=== PATIENT | female | born 1995 | race Caucasian/White ===

== ENCOUNTER 2018-12-21 06:19 | Day surgery (SDC) | payer BC ==
[2018-12-21] MEDS ORDERED: Lidocaine 2% 5 ML SDV ONE (07:00)
[2018-12-21] MEDS ORDERED: fentaNYL 100 MCG/2 ML SDV ONE ×2 (07:01→07:58)
[2018-12-21] MEDS ORDERED: Propofol 200 MG/20 ML SDV ONE ×2 (07:01)
[2018-12-21] MEDS ORDERED: Midazolam 1 MG/ML 2 ML SDV ONE (07:01)
[2018-12-21] MEDS ORDERED: Lidocaine 1% with EPINEPHrine 1:100,000 20 ML MDV ONE (07:32)
--- NOTE | 2018-12-21 07:53 | PCM.PREANE ---
Preanesthetic Assessment - Anesthesia/Transfusion/Family Hx Anesthesia History: Prior Anesthesia Without Reaction Other Type of Anesthesia Reaction Comment: "twin sister woke up during her tonsillectomy" Family History of Anesthesia Reaction: No Transfusion History: No Prior Transfusion(s) - Review of Systems General: No Symptoms Pulmonary: No Symptoms Cardiovascular: No Symptoms Gastrointestinal: No Symptoms Neurological: No Symptoms Other: Reports: None - Physical Assessment NPO Status Date: 12/20/18 O2 Sat by Pulse Oximetry: 98 Respiratory Rate: 14 Vital Signs: Last Vital Signs Temp 97.9 F 12/21/18 07:12 Pulse 99 12/21/18 07:12 Resp 14 12/21/18 07:12 BP 142/74 H 12/21/18 07:12 Pulse Ox 98 12/21/18 07:12 Height: 5 ft 3.5 in Weight: 62.596 kg ASA Class: 5E Emergency Airway Class: Mallampati = 2 Dentition: Reports: Normal Dentition ROM/Head Extension: Full Lungs: Clear to Auscultation, Normal Respiratory Effort Cardiovascular: Regular Rate, Regular Rhythm - Lab Values: Laboratory Last Values WBC 14.05 K/uL (4.0-11.0) H 12/21/18 07:15 RBC 4.37 M/uL (4.30-5.90) 12/21/18 07:15 Hgb 13.1 g/dL (12.0-16.0) 12/21/18 07:15 Hct 39.3 % (36.0-46.0) 12/21/18 07:15 MCV 89.9 fL (80.0-98.0) 12/21/18 07:15 MCH 30.0 pg (27.0-32.0) 12/21/18 07:15 MCHC 33.3 g/dL (31.0-37.0) 12/21/18 07:15 RDW Std Deviation 43.1 fl (28.0-62.0) 12/21/18 07:15 RDW Coeff of Shane 13 % (11.0-15.0) 12/21/18 07:15 Plt Count 349 K/uL (150-400) 12/21/18 07:15 MPV 9.30 fL (7.40-12.00) 12/21/18 07:15 Neut % (Auto) 80.2 % (48.0-80.0) H 12/21/18 07:15 Lymph % (Auto) 12.8 % (16.0-40.0) L 12/21/18 07:15 [place] % (Auto) 6.4 % (0.0-15.0) 12/21/18 07:15 Eos % (Auto) 0.5 % (0.0-7.0) 12/21/18 07:15 Baso % (Auto) 0.1 % (0.0-1.5) 12/21/18 07:15 Neut # (Auto) 11.3 K/uL (1.4-5.7) H 12/21/18 07:15 Lymph # (Auto) 1.8 K/uL (0.6-2.4) 12/21/18 07:15 [place] # (Auto) 0.9 K/uL (0.0-0.8) H 12/21/18 07:15 Eos # (Auto) 0.1 K/uL (0.0-0.7) 12/21/18 07:15 Baso # (Auto) 0.0 K/uL (0.0-0.1) 12/21/18 07:15 Nucleated RBC % 0.0 /100WBC 12/21/18 07:15 Nucleated RBCs # 0 K/uL 12/21/18 07:15 HCG, Qual NEGATIVE (NEG) 12/21/18 07:15 - Allergies Allergies/Adverse Reactions: Allergies Allergy/AdvReac Type Severity Reaction Status Date / Time No Known Allergies Allergy Verified 12/15/18 07:30 - Blood Blood Available: No - Anesthesia Plan Pre-Op Medication Ordered: None - Acknowledgements Anesthesia Type Planned: General Anesthesia Pt an Appropriate Candidate for the Planned Anesthesia: Yes Alternatives and Risks of Anesthesia Discussed w Pt/Guardian: Yes Pt/Guardian Understands and Agrees with Anesthesia Plan: Yes Additional Comments: anes prob list: chr pain from intersticial cyctitis, rxed with amitryptaline PLAN: ga/lma PreAnesthesia Questionnaire HEENT History: Reports: None Cardiovascular History: Reports: None Respiratory History: Reports: None Gastrointestinal History: Reports: None Genitourinary History: Reports: None 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: Musculoskeletal History: Reports: Fracture Other Musculoskeletal History: hx fx arm and collarbone Neurological History: Reports: None Psychiatric History: Reports: None Endocrine/Metabolic History: Reports: None Hematologic History: Reports: None Immunologic History: Reports: None Oncologic (Cancer) History: Reports: None Dermatologic History: Reports: Eczema - Past Surgical History Head Surgeries/Procedures: Reports: None HEENT Surgical History: Reports: Tonsillectomy Cardiovascular Surgical History: Reports: None Respiratory Surgical History: Reports: None GI Surgical History: Reports: None Female Surgical History: Reports: None Endocrine Surgical History: Reports: None Neurological Surgical History: Reports: None Musculoskeletal Surgical History: Reports: None Oncologic Surgical History: Reports: None Dermatological Surgical History: Reports: None - SUBSTANCE USE Smoking Status *Q: Current Every Day Smoker Tobacco Use Within Last Twelve Months: Cigarettes Recreational Drug Use History: No - HOME MEDS Home Medications: Home Meds Amitriptyline [Elavil] 10 mg PO BEDTIME 12/15/18 [History] Norgestimate-Ethinyl Estradiol [Sprintec 28 Day Tablet] 1 tab PO ASDIRECTED 05/25 [History] - CURRENT (IN HOUSE) MEDS Current Meds: Current Medications Discontinued Medications Fentanyl (Sublimaze) Confirm Administered Dose 100 mcg .ROUTE .STK-MED ONE Stop: 12/21/18 07:02 Lidocaine (Xylocaine-Mpf 2%) Confirm Administered Dose 5 ml .ROUTE .STK-MED ONE Stop: 12/21/18 07:01 Lidocaine/Epinephrine (Xylocaine 1% With Epinephrine 1:100,000) Confirm Administered Dose 20 ml .ROUTE .STK-MED ONE Stop: 12/21/18 07:33 Midazolam HCl (Versed 1 Mg/Ml) Confirm Administered Dose 2 mg .ROUTE .STK-MED ONE Stop: 12/21/18 07:02 Propofol (Diprivan 20 Ml) Confirm Administered Dose 400 mg .ROUTE .STK-MED ONE Stop: 12/21/18 07:02 Propofol (Diprivan 20 Ml) Confirm Administered Dose 200 mg .ROUTE .STK-MED ONE Stop: 12/21/18 07:02
[2018-12-21] MEDS ORDERED: fentaNYL 100 MCG/2 ML SDV IVPUSH PRN (08:08)
[2018-12-21] MEDS ORDERED: Naloxone 0.4 MG/ML Syringe IVPUSH PRN (08:08)
[2018-12-21] MEDS ORDERED: EPINEPHrine 1:10,000 1 MG/10 ML Syringe IVPUSH PRN (08:08)
[2018-12-21] MEDS ORDERED: Albuterol 0.083% 2.5 MG/3 ML Neb Soln NEB PRN (08:08)
[2018-12-21] MEDS ORDERED: Atropine 0.1 MG/ML 10 ML Syringe IVPUSH PRN ×2 (08:08)
[2018-12-21] MEDS ORDERED: 50% Dextrose in Water 50 ML Syringe IVPUSH PRN (08:08)
[2018-12-21] MEDS ORDERED: Acetaminophen/HYDROcodone 325-5 MG Tab PO PRN (08:37)
--- NOTE | 2018-12-21 08:41 | PCM.OPNOTE ---
- General Post-Op/Procedure Note Date of Surgery/Procedure: 12/21/18 Operative Procedure(s): LEEP Findings: EUA showed normal sized uterus Acetowhite epithelium noted on cervix around the 12 oclock and 6 oclock Pre Op Diagnosis: CIN2 Post-Op Diagnosis: CIN2 Anesthesia Technique: MAC Primary Surgeon: Elina Sanchez Anesthesia Provider: Agustin Feng Pathology: Cervical Leep specimen Fluid Replacement, Intraop: 700 EBL in mLs: 5 Complications: None Condition: Good
--- NOTE | 2018-12-21 08:46 | PCM.POSTAN ---
POST ANESTHESIA ASSESSMENT - MENTAL STATUS Mental Status: Alert - RESPIRATORY Respiratory Status: Respiratory Rate WNL, Airway Patent, O2 Saturation Stable - CARDIOVASCULAR CV Status: Pulse Rate WNL, Blood Pressure Stable - GASTROINTESTINAL GI Status: No Symptoms - POST OP HYDRATION Hydration Status: Adequate & Stable
--- NOTE | 2018-12-21 09:24 | PCM48HPAN ---
Post Anesthesia Note - EVALUATION WITHIN 48HRS OF ANESTHETIC Vital Signs in Normal Range: Yes Patient Participated in Evaluation: Yes Respiratory Function Stable: Yes Airway Patent: Yes Cardiovascular Function Stable: Yes Hydration Status Stable: Yes Pain Control Satisfactory: Yes Nausea and Vomiting Control Satisfactory: Yes Resp Rate: 14
--- NOTE | 2018-12-21 13:48 | OR ---
SURGEON: CLAUDY SANCHEZ DATE OF PROCEDURE: 12/21/2018 PREOPERATIVE DIAGNOSIS: Cervical intraepithelial neoplasia 2 by colposcopy. POSTOPERATIVE DIAGNOSIS: Cervical intraepithelial neoplasia 2 by colposcopy. PROCEDURE: Endocervical curettage and LEEP cone biopsy. ANESTHESIA: MAC. PRIMARY SURGEON: Claudy Sanchez MD. FINDINGS: normal uterus while exposure of the cervix showed slight acetowhite noted at the 12 and 6 o'clock position. ESTIMATED BLOOD LOSS: Minimal. DESCRIPTION OF PROCEDURE: The patient was taken to the operating room. She was placed on the operating table in the dorsal lithotomy position. The vagina and perineum were draped in the usual fashion. Using the bivalve insulated speculum, the cervix was visualized and painted with acetic acid. Using lidocaine with epinephrine and spinal needle, the cervix was injected at 3, 6, 9, and 12 o'clock positions. Using a 20 x 15 mm loop, a flat cone biopsy was removed from the ectocervix surrounding the os and the ECC was then done. After the LEEP procedure with Kevorkian curette, the endocervix was scraped. The scraping was sent to pathology separately. Hemostasis was noted after the procedure. The base of the cone was ablated. After ablation, Monsel was applied to the base of the cone. The patient was taken to the recovery room in stable condition. All instrument and pad count were correct x2. DESMOND / COURTNEY /[id number]
== END 2018-12-21 09:35 | disposition home or self-care (01) ==
LOC: MW.SDS 06:19
PROVIDERS: ATTEND Obstetrics & Gynecology
DX: N87.0 Mild cervical dysplasia (principal); F17.210 Nicotine dependence, cigarettes, uncomplicated; Z79.3 Long term (current) use of hormonal contraceptives; Z79.899 Other long term (current) drug therapy; Z98.890 Other specified postprocedural states
CPT/HCPCS: 36415; 57461; 84703; 85025; J2001; J2250; J2704; J3010; 00940; 88305; 88307

== ENCOUNTER 2020-10-06 12:03 | Emergency (ER) | payer BC ==
[2020-10-06] MEDS ORDERED: Aspirin 81 MG Tab.Chew PO ONE (12:04)
[2020-10-06] MEDS ORDERED: Sodium Chloride 0.9% 10 ML Syringe FLUSH PRN (12:04)
[2020-10-06] MEDS ORDERED: Sodium Chloride 0.9% 2.5 ML Syringe FLUSH PRN (12:04)
--- NOTE | 2020-10-06 12:10 | EDM.PDOC ---
ED HPI GENERAL MEDICAL PROBLEM - General Chief Complaint: Chest Pain Stated Complaint: CHEST PAIN Time Seen by Provider: 10/06/20 12:04 - History of Present Illness INITIAL COMMENTS - FREE TEXT/NARRATIVE: History of present illness: [] This patient who is is saying she developed chest pain that started last night. It was intermittent. It is worse when she belches or swallowing. But there is a pressure in the center of her chest associated with mild diaphoresis and some nausea. There is no shortness of breath. In the last few hours its become constant and severe pressure in the center of her chest. The patient is a smoker but not diabetic and there is no family history of heart disease or stroke. She has not been recently immobilized but is and third trimester. She also has it if history of thromboembolic disease and the negative family history of thromboembolic disease. Review of systems: As per history of present illness and below otherwise all systems reviewed and negative. Past medical history: As per history of present illness and as reviewed below otherwise noncontributory. Surgical history: As per history of present illness and as reviewed below otherwise noncontributory. Social history: No reported history of drug or alcohol abuse. Family history: As per history of present illness and as reviewed below otherwise noncontributory. Physical exam: Constitutional - well developed, well-nourished and in no acute distress HEENT - normocephalic, no evidence of trauma - external nose and mouth normal - no mass in neck and no JVD - mucosae moist EYES - full EOM, PERRL, no icterus - no evidence of inflammation, injection, or drainage Respiratory - no respiratory distress, equal bilateral expansion, lungs clear to auscultation and no abnormal lung sounds Cardiovascular - Regular Rhythm with S1 and S2 appreciated and no murmur, gallop or rub. GI -there is a near-term fundus in her abdomen. Abdomen soft without organomegaly - normal bowel sounds - no guard or rebound Musculoskeletal no gross deformity of long bones or joints - no tenderness, swelling or edema Neurologic - Alert and oriented times four - CN II-XII grossly intact - motor sensory and coordination symmetrically normal Psychiatric - appropriate mood and affect with normal thought content Hematologic - No petechiae or purpura - mucosa appropriate color and sclera not pale - normal nail bed color and refill Integument - no rash or evidence of trauma - normal turgor Diagnostics: [] Therapeutics: [] Impression: [] Plan: [] Definitive disposition and diagnosis as appropriate pending reevaluation and review of above. Chest Pain Score (Numeric/FACES): 5 - Related Data Allergies Allergy/AdvReac Type Severity Reaction Status Date / Time amoxicillin Allergy Rash Verified 10/06/20 12:05 Home Meds: Home Meds Omeprazole Magnesium [Prilosec Otc] 20 mg PO DAILY #30 tablet. 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: Musculoskeletal History: Reports: Fracture Other Musculoskeletal History: hx fx arm and collarbone Neurological History: Reports: None Psychiatric History: Reports: None Endocrine/Metabolic History: Reports: None Hematologic History: Reports: None Immunologic History: Reports: None Oncologic (Cancer) History: Reports: None Dermatologic History: Reports: Eczema - Past Surgical History Head Surgeries/Procedures: Reports: None HEENT Surgical History: Reports: Tonsillectomy Cardiovascular Surgical History: Reports: None Respiratory Surgical History: Reports: None GI Surgical History: Reports: None Female Surgical History: Reports: None Endocrine Surgical History: Reports: None Neurological Surgical History: Reports: None Musculoskeletal Surgical History: Reports: None Oncologic Surgical History: Reports: None Dermatological Surgical History: Reports: None ED ROS GENERAL - Review of Systems Review Of Systems: Comprehensive ROS is negative, except as noted in HPI. ED EXAM, GENERAL - Physical Exam Exam: See Below Free Text/Narrative:: Physical exam see in the HPI #1 Interpretation EKG Interpretation Comments: EKG done at 12 PM sinus tachycardia heart rate 121 MD interval [address] depression in the lateral leads. No prior for comparison. Impression no obvious acute injury. Course - Vital Signs Text/Narrative:: [address] Joyce and she wanted the patient taken over for an NST at the OB service. Last Recorded V/S: Last Vital Signs Temp 37.2 C 10/06/20 12:05 Pulse 120 H 10/06/20 12:05 Resp 18 10/06/20 12:05 BP 141/81 H 10/06/20 12:05 Pulse Ox 99 10/06/20 12:05 - Orders/Labs/Meds Orders: Active Orders 24 hr Category Date Time Status EKG Documentation Completion [RC] AM Care 10/06/20 12:04 Active Heart Tones [RC] ASDIRECTED Care 10/06/20 12:08 Active Sodium Chloride 0.9% [Saline Flush] Med 10/06/20 12:04 Active 10 ml FLUSH ASDIRECTED PRN Sodium Chloride 0.9% [Saline Flush] Med 10/06/20 12:04 Active 2.5 ml FLUSH ASDIRECTED PRN Saline Lock Insert [OM.PC] Stat Oth 10/06/20 12:04 Ordered Medication Orders Sodium Chloride (Sodium Chloride 0.9% 10 Ml Syringe) 10 ml FLUSH ASDIRECTED PRN PRN Reason: Keep Vein Open Last Admin: 10/06/20 12:20 Dose: 10 ml Documented by: SAEID Sodium Chloride (Sodium Chloride 0.9% 2.5 Ml Syringe) 2.5 ml FLUSH ASDIRECTED PRN PRN Reason: Keep Vein Open Last Admin: 10/06/20 12:20 Dose: 2.5 ml Documented by: SAEID Labs: Laboratory Tests 10/06/20 10/06/20 10/06/20 Range/Units 12:25 12:25 13:56 WBC 12.87 H (4.0-11.0) K/uL RBC 3.61 L (4.30-5.90) M/uL Hgb 11.6 L (12.0-16.0) g/dL Hct 34.0 L (36.0-46.0) % MCV 94.2 (80.0-98.0) fL MCH 32.1 H (27.0-32.0) pg MCHC 34.1 (31.0-37.0) g/dL RDW Std Deviation 47.5 (28.0-62.0) fl RDW Coeff of Shane 14 (11.0-15.0) % Plt Count 248 (150-400) K/uL MPV 9.60 (7.40-12.00) fL Neut % (Auto) 82.7 H (48.0-80.0) % Lymph % (Auto) 11.5 L (16.0-40.0) % [place] % (Auto) 5.1 (0.0-15.0) % Eos % (Auto) 0.6 (0.0-7.0) % Baso % (Auto) 0.1 (0.0-1.5) % Neut # (Auto) 10.7 H (1.4-5.7) K/uL Lymph # (Auto) 1.5 (0.6-2.4) K/uL [place] # (Auto) 0.7 (0.0-0.8) K/uL Eos # (Auto) 0.1 (0.0-0.7) K/uL Baso # (Auto) 0.0 (0.0-0.1) K/uL Nucleated RBC % 0.0 /100WBC Nucleated RBCs # 0 K/uL Sodium 138 (136-145) mmol/L Potassium 3.5 (3.5-5.1) mmol/L Chloride 104 (98-107) mmol/L Carbon Dioxide 20.6 L (21.0-32.0) mmol/L BUN 6 L (7.0-18.0) mg/dL Creatinine 0.6 (0.6-1.0) mg/dL Est Cr Clr Drug Dosing 113.36 mL/min Estimated GFR (MDRD) > 60.0 ml/min Glucose 97 (74-106) mg/dL Calcium 9.4 (8.5-10.1) mg/dL Magnesium 1.4 L (1.8-2.4) mg/dL Total Bilirubin 0.3 (0.2-1.0) mg/dL AST 12 L (15-37) IU/L ALT 20 (14-63) IU/L Alkaline Phosphatase 111 (46-116) U/L Troponin I < 0.050 (0.000-0.056) ng/mL Total Protein 6.8 (6.4-8.2) g/dL Albumin 2.9 L (3.4-5.0) g/dL Globulin 3.9 (2.6-4.0) g/dL Albumin/Globulin Ratio 0.7 L (0.9-1.6) Lipase 81 (73-393) U/L Urine Color YELLOW Urine Appearance CLEAR Urine pH 6.5 (5.0-8.0) Ur Specific [place] <= 1.005 (1.001-1.035) Urine Protein NEGATIVE (NEGATIVE) mg/dL Urine Glucose (UA) NEGATIVE (NEGATIVE) mg/dL Urine Ketones TRACE H (NEGATIVE) mg/dL Urine Occult Blood NEGATIVE (NEGATIVE) Urine Nitrite NEGATIVE (NEGATIVE) Urine Bilirubin NEGATIVE (NEGATIVE) Urine Urobilinogen 0.2 (<2.0) EU/dL Ur Leukocyte Esterase NEGATIVE (NEGATIVE) 10/06/20 Range/Units 14:58 WBC (4.0-11.0) K/uL RBC (4.30-5.90) M/uL Hgb (12.0-16.0) g/dL Hct (36.0-46.0) % MCV (80.0-98.0) fL MCH (27.0-32.0) pg MCHC (31.0-37.0) g/dL RDW Std Deviation (28.0-62.0) fl RDW Coeff of Shane (11.0-15.0) % Plt Count (150-400) K/uL MPV (7.40-12.00) fL Neut % (Auto) (48.0-80.0) % Lymph % (Auto) (16.0-40.0) % [place] % (Auto) (0.0-15.0) % Eos % (Auto) (0.0-7.0) % Baso % (Auto) (0.0-1.5) % Neut # (Auto) (1.4-5.7) K/uL Lymph # (Auto) (0.6-2.4) K/uL [place] # (Auto) (0.0-0.8) K/uL Eos # (Auto) (0.0-0.7) K/uL Baso # (Auto) (0.0-0.1) K/uL Nucleated RBC % /100WBC Nucleated RBCs # K/uL Sodium (136-145) mmol/L Potassium (3.5-5.1) mmol/L Chloride (98-107) mmol/L Carbon Dioxide (21.0-32.0) mmol/L BUN (7.0-18.0) mg/dL Creatinine (0.6-1.0) mg/dL Est Cr Clr Drug Dosing mL/min Estimated GFR (MDRD) ml/min Glucose (74-106) mg/dL Calcium (8.5-10.1) mg/dL Magnesium (1.8-2.4) mg/dL Total Bilirubin (0.2-1.0) mg/dL AST (15-37) IU/L ALT (14-63) IU/L Alkaline Phosphatase (46-116) U/L Troponin I < 0.050 (0.000-0.056) ng/mL Total Protein (6.4-8.2) g/dL Albumin (3.4-5.0) g/dL Globulin (2.6-4.0) g/dL Albumin/Globulin Ratio (0.9-1.6) Lipase (73-393) U/L Urine Color Urine Appearance Urine pH (5.0-8.0) Ur Specific [place] (1.001-1.035) Urine Protein (NEGATIVE) mg/dL Urine Glucose (UA) (NEGATIVE) mg/dL Urine Ketones (NEGATIVE) mg/dL Urine Occult Blood (NEGATIVE) Urine Nitrite (NEGATIVE) Urine Bilirubin (NEGATIVE) Urine Urobilinogen (<2.0) EU/dL Ur Leukocyte Esterase (NEGATIVE) Meds: Medications Generic Name Dose Route Start Last Admin Trade Name Freq PRN Reason Stop Dose Admin Sodium Chloride 10 ml 10/06/20 12:04 10/06/20 12:20 Sodium Chloride 0.9% 10 Ml Syringe FLUSH 10 ml ASDIRECTED PRN Administration Keep Vein Open Sodium Chloride 2.5 ml 10/06/20 12:04 10/06/20 12:20 Sodium Chloride 0.9% 2.5 Ml Syringe FLUSH 2.5 ml ASDIRECTED PRN Administration Keep Vein Open Discontinued Medications Generic Name Dose Route Start Last Admin Trade Name Freq PRN Reason Stop Dose Admin Al Hydroxide/Mg Hydroxide 30 ml 10/06/20 12:36 10/06/20 13:06 Aluminum Hydroxide/Magnesium Hydroxide/Simethicone Susp 30 Ml Cup PO 10/06/20 12:37 30 ml ONETIME ONE Administration Aspirin 324 mg 10/06/20 12:04 10/06/20 12:19 Aspirin 81 Mg Tab.Chew PO 10/06/20 12:05 324 mg ONETIME ONE Administration Pantoprazole Sodium 40 mg/ 10 mls @ 300 mls/hr 10/06/20 12:39 10/06/20 13:07 Sodium Chloride IV 10/06/20 12:40 300 mls/hr NOW ONE Administration Departure - Departure Time of Disposition: 16:43 Disposition: Home, Self-Care 01 Condition: Good Clinical Impression: GERD (gastroesophageal reflux disease) - Discharge Information Prescriptions: Omeprazole Magnesium [Prilosec Otc] 20 mg PO DAILY #30 tablet. Instructions: Gastroesophageal Reflux Disease, Adult, [id number] Forms: ED Department Discharge Additional Instructions: Lower asked to take you by wheelchair to the labor and delivery department where they will evaluate the baby. [facility] [address] [place] [id number] [facility] [address] [place] [id number] The following information is given to patients seen in the emergency department who are being discharged to home. This information is to outline your options for follow-up care. We provide all patients seen in our emergency department with a follow-up referral. The need for follow-up, as well as the timing and circumstances, are variable depending upon the specifics of your emergency department visit. If you don't have a primary care physician on staff, we will provide you with a referral. We always advise you to contact your personal physician following an emergency department visit to inform them of the circumstance of the visit and for follow-up with them and/or the need for any referrals to a consulting specialist. The emergency department will also refer you to a specialist when appropriate. This referral assures that you have the opportunity for follow-up care with a specialist. All of these measure are taken in an effort to provide you with optimal care, which includes your follow-up. Under all circumstances we always encourage you to contact your private physician who remains a resource for coordinating your care. When calling for follow-up care, please make the office aware that this follow-up is from your recent emergency room visit. If for any reason you are refused follow-up, please contact the [facility] Emergency Department at and asked to speak to the emergency department charge nurse. Sepsis Event Note (ED) - Focused Exam Vital Signs: Vital Signs Temp Pulse Resp BP Pulse Ox 10/06/20 12:05 37.2 C 120 H 18 141/81 H 99 - My Orders Last 24 Hours: My Active Orders 10/06/20 12:04 EKG Documentation Completion [RC] AM Sodium Chloride 0.9% [Saline Flush] 10 ml FLUSH ASDIRECTED PRN Sodium Chloride 0.9% [Saline Flush] 2.5 ml FLUSH ASDIRECTED PRN Saline Lock Insert [OM.PC] Stat 10/06/20 12:08 Heart Tones [RC] ASDIRECTED - Assessment/Plan Last 24 Hours: My Active Orders 10/06/20 12:04 EKG Documentation Completion [RC] AM Sodium Chloride 0.9% [Saline Flush] 10 ml FLUSH ASDIRECTED PRN Sodium Chloride 0.9% [Saline Flush] 2.5 ml FLUSH ASDIRECTED PRN Saline Lock Insert [OM.PC] Stat 10/06/20 12:08 Heart Tones [RC] ASDIRECTED
[2020-10-06] MEDS ORDERED: Aluminum Hydroxide/Magnesium Hydroxide/Simethicone Susp 30 ML Cup PO ONE (12:36)
[2020-10-06] MEDS ORDERED: Pantoprazole 40 MG in Sodium Chloride 0.9% 10 ML IV ONE (12:39)
[2020-10-06 13:14] LABS: BLOOD UREA NITROGEN,BUN 6 mg/dL (7.0-18.0); CARBON DIOXIDE,CO2 20.6 mmol/L (21.0-32.0); CHLORIDE,CL 104 mmol/L (98-107); GLUCOSE RANDOM 97 mg/dL (74-106); LIPASE 81 U/L (73-393); POTASSIUM,K 3.5 mmol/L (3.5-5.1); SODIUM,NA 138 mmol/L (136-145)
--- NOTE | 2020-10-06 13:26 | CR ---
INDICATION: Thirty-one weeks with chest and epigastric pain. TECHNIQUE: Chest 1 view COMPARISON: None FINDINGS: Cardiovascular and mediastinum: Heart size and vasculature are normal in caliber and appearance. Lungs and pleural spaces: Lungs are clear. No sign of infiltrate or mass. No sign of pleural effusion. No pneumothorax. Bones and soft tissues: No significant findings. IMPRESSION: No acute or significant findings. Dictated by Иван Núñez MD @ Oct 06 2020 1:21PM Signed by Dr. Иван Núñez @ Oct 06 2020 1:25PM
== END 2020-10-06 16:50 | disposition home or self-care (01) ==
LOC: MW.ED 12:03
DX: O99.611 Diseases of the digestive system complicating pregnancy, first trimester (principal); K21.9 Gastro-esophageal reflux disease without esophagitis; Z88.0 Allergy status to penicillin
CPT/HCPCS: 36415; 71045; 80053; 81003; 83690; 83735; 84484; 85025; 93005; 96374; 99285; A9270; C9113; 93010; 99284

== ENCOUNTER 2020-11-17 05:22 | Inpatient (IN) | payer BC ==
[2020-11-17] MEDS ORDERED: Sodium Chloride 0.9% 10 ML Syringe FLUSH PRN (05:39)
[2020-11-17] MEDS ORDERED: Sodium Chloride 0.9% 2.5 ML Syringe FLUSH PRN (05:39)
[2020-11-17] MEDS ORDERED: Clindamycin Phosphate in D5W 600 MG in Premix Bag 50 BAG IV ONE ×2 (05:39)
[2020-11-17] MEDS ORDERED: Citric Acid/Sodium Citrate Solution 30 ML Cup PO ONE (05:39)
[2020-11-17] MEDS ORDERED: Sodium Chloride 0.9% 10 ML SDV IV PRN (05:39)
[2020-11-17] MEDS ORDERED: Lactated Ringers 1,000 ML IV SCH ×2 (05:45→10:00)
[2020-11-17] MEDS ORDERED: Oxytocin/0.9 % Sodium Chloride 30 UNIT/500 ML BAG IV SCH (05:45)
[2020-11-17] MEDS ORDERED: Ondansetron 4 MG/2 ML SDV ONE (06:51)
[2020-11-17] MEDS ORDERED: Ketorolac 30 MG/ML SDV ONE (06:51)
[2020-11-17] MEDS ORDERED: Oxytocin 10 Units/1 ML SDV ONE ×2 (06:51→09:06)
[2020-11-17] MEDS ORDERED: Morphine PF 10 MG/10 ML SDV ONE (06:55)
--- NOTE | 2020-11-17 08:39 | PCM.PREANE ---
Preanesthetic Assessment - Anesthesia/Transfusion/Family Hx Anesthesia History: Prior Anesthesia Without Reaction Other Type of Anesthesia Reaction Comment: "sister woke up during her tonsillectomy" Family History of Anesthesia Reaction: No Transfusion History: Unknown Intubation History: Unknown - Review of Systems General: No Symptoms Pulmonary: No Symptoms Cardiovascular: No Symptoms Gastrointestinal: No Symptoms Neurological: No Symptoms - Physical Assessment NPO Status Date: 11/16/20 NPO Status Time: 22:00 Height: 1.57 m Weight: 88.904 kg ASA Class: 2 Mental Status: Alert & Oriented x3 Airway Class: Mallampati = 2 Dentition: Reports: Normal Dentition Thyro-Mental Finger Breadths: 3 Mouth Opening Finger Breadths: 2 ROM/Head Extension: Full - Lab Values: Laboratory Last Values WBC 10.24 K/uL (4.0-11.0) 11/16/20 09:54 RBC 3.93 M/uL (4.30-5.90) L 11/16/20 09:54 Hgb 12.9 g/dL (12.0-16.0) 11/16/20 09:54 Hct 37.1 % (36.0-46.0) 11/16/20 09:54 MCV 94.4 fL (80.0-98.0) 11/16/20 09:54 MCH 32.8 pg (27.0-32.0) H 11/16/20 09:54 MCHC 34.8 g/dL (31.0-37.0) 11/16/20 09:54 RDW Std Deviation 48.8 fl (28.0-62.0) 11/16/20 09:54 RDW Coeff of Shane 14 % (11.0-15.0) 11/16/20 09:54 Plt Count 224 K/uL (150-400) 11/16/20 09:54 MPV 10.30 fL (7.40-12.00) 11/16/20 09:54 Nucleated RBC % 0.0 /100WBC 11/16/20 09:54 Nucleated RBCs # 0 K/uL 11/16/20 09:54 Blood Type A POSITIVE 11/16/20 09:57 Antibody Screen NEGATIVE 11/16/20 09:57 - Allergies Allergies/Adverse Reactions: Allergies Allergy/AdvReac Type Severity Reaction Status Date / Time amoxicillin Allergy Rash Verified 11/15/20 08:08 - Acknowledgements Anesthesia Type Planned: Spinal Pt an Appropriate Candidate for the Planned Anesthesia: Yes Alternatives and Risks of Anesthesia Discussed w Pt/Guardian: Yes Pt/Guardian Understands and Agrees with Anesthesia Plan: Yes PreAnesthesia Questionnaire - Past Health History Medical/Surgical History: Denies Medical/Surgical History HEENT History: Reports: None Cardiovascular History: Reports: None Respiratory History: Reports: None Gastrointestinal History: Reports: GERD Genitourinary History: Reports: None 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: Musculoskeletal History: Reports: Fracture Other Musculoskeletal History: hx fx arm and collarbone Neurological History: Reports: None Psychiatric History: Reports: Anxiety Endocrine/Metabolic History: Reports: Obesity/BMI 30+ Hematologic History: Reports: None Immunologic History: Reports: None Oncologic (Cancer) History: Reports: None Dermatologic History: Reports: Eczema - Infectious Disease History Infectious Disease History: Reports: None - Past Surgical History Head Surgeries/Procedures: Reports: None HEENT Surgical History: Reports: Tonsillectomy Cardiovascular Surgical History: Reports: None Respiratory Surgical History: Reports: None GI Surgical History: Reports: None Female Surgical History: Reports: LEEP Endocrine Surgical History: Reports: None Neurological Surgical History: Reports: None Musculoskeletal Surgical History: Reports: None Oncologic Surgical History: Reports: None Dermatological Surgical History: Reports: None - SUBSTANCE USE Tobacco Use Status *Q: Light Tobacco User Tobacco Use Within Last Twelve Months: Cigarettes - HOME MEDS Home Medications: Home Meds #103/Iron Fumarate/Fa [ ] 1 dose PO BEDTIME 10/06/20 [History] Aspirin [Rivka Chewable Aspirin] 1 tab CHEW BEDTIME 11/07/20 [History] Ferrous Sulfate 1 tab PO BEDTIME 11/07/20 [History] Omeprazole Magnesium [Prilosec Otc] 20 mg PO DAILY 11/15/20 [History]
[2020-11-17] MEDS ORDERED: Dexamethasone 4 MG/ML 5 ML MDV ONE (09:08)
[2020-11-17] MEDS ORDERED: Metoclopramide 10 MG/2 ML SDV ONE (09:08)
--- NOTE | 2020-11-17 09:51 | PCM.OPNOTE ---
- General Post-Op/Procedure Note Date of Surgery/Procedure: 11/17/20 Operative Procedure(s): Primary lower segment section Findings: Live female delivered at 841am , pending , weight 2390g Live female delivered at 842am , pending , weight 2340g Pre Op Diagnosis: 24yo @ 37w1d. Twin Gestation ( Breech/Oblique). Gestational Hypertension Post-Op Diagnosis: same Anesthesia Technique: Epidural Primary Surgeon: Elina Sanchez Anesthesia Provider: Edward Crandall Fluid Replacement, Intraop: 1,400 Output, Urine Amount: 225 EBL in mLs: 700 Complications: None Condition: Good Free Text/Narrative:: Intake & Output 11/16/20 11/17/20 11/17/20 22:59 06:59 14:59 Intake Total 2150 Balance 2150
[2020-11-17] MEDS ORDERED: diphenhydrAMINE 50 MG/ML SDV IVPUSH PRN (09:58)
[2020-11-17] MEDS ORDERED: Ibuprofen 800 MG Tab PO PRN (09:58)
[2020-11-17] MEDS ORDERED: Tranexamic Acid 1,000 MG in Sodium Chloride 0.9% 100 ML IV PRN (09:58)
[2020-11-17] MEDS ORDERED: Ondansetron 4 MG/2 ML SDV IVPUSH PRN (09:58)
[2020-11-17] MEDS ORDERED: Bisacodyl 10 MG Supp RECTAL PRN (09:58)
[2020-11-17] MEDS ORDERED: Methylergonovine 0.2 MG/1 ML Amp IM PRN (09:58)
[2020-11-17] MEDS ORDERED: Lanolin 100% Cream 7 GM Tube TOP PRN (09:58)
[2020-11-17] MEDS ORDERED: Oxytocin 10 Units/1 ML SDV IM PRN (09:58)
[2020-11-17] MEDS ORDERED: Acetaminophen/oxyCODONE 325-5 MG Tab PO PRN ×3 (09:58→17:30)
[2020-11-17] MEDS ORDERED: Misoprostol 200 MCG Tab RECTAL PRN (09:58)
[2020-11-17] MEDS ORDERED: Oxytocin/Lactated Ringers 30 UNIT/500 ML BAG IV SCH (10:00)
--- NOTE | 2020-11-17 12:16 | PCM.POSTAN ---
POST ANESTHESIA ASSESSMENT - MENTAL STATUS Mental Status: Alert - RESPIRATORY Respiratory Status: Respiratory Rate WNL - CARDIOVASCULAR CV Status: Pulse Rate WNL - GASTROINTESTINAL GI Status: No Symptoms - POST OP HYDRATION Hydration Status: Adequate & Stable
[2020-11-17] MEDS ORDERED: Acetaminophen/oxyCODONE 325-5 MG Tab PO ONE (13:21)
[2020-11-17] MEDS ORDERED: Enoxaparin 40 MG/0.4 ML Syringe SUBCUT ONE (14:30)
[2020-11-17] MEDS: Ketorolac 30 MG/ML SDV IVPUSH SCH ×2 (15:25→21:03)
[2020-11-17] MEDS: Docusate Sodium 100 MG Cap PO SCH (21:07)
[2020-11-18] MEDS: Ketorolac 30 MG/ML SDV IVPUSH SCH ×3 (03:14→11:24)
--- NOTE | 2020-11-18 06:56 | PCM48HPAN ---
Post Anesthesia Note - EVALUATION WITHIN 48HRS OF ANESTHETIC Vital Signs in Normal Range: Yes Patient Participated in Evaluation: Yes Respiratory Function Stable: Yes Airway Patent: Yes Cardiovascular Function Stable: Yes Hydration Status Stable: Yes Pain Control Satisfactory: Yes Nausea and Vomiting Control Satisfactory: Yes Mental Status Recovered: Yes Vital Signs: Last Vital Signs Temp 35.9 C L 11/18/20 04:00 Pulse 96 11/18/20 04:00 Resp 20 11/18/20 04:00 BP 116/59 L 11/18/20 04:00 Pulse Ox 96 11/18/20 04:00
--- NOTE | 2020-11-18 08:43 | PCM.PNPP ---
- General Info Date of Service: 11/18/20 Subjective Update: Ambulating about room during rounds without difficulty. Pain well controlled with PO medications. Tolerating regular diet. Voiding without difficulty. Lochia decreasing. Breast pumping for babies in NICU in [place], [place]. Patient strongly desires discharge today due to both infants transferred to [place], [place]. - General Info Date of Service: 11/18/20 - Patient Data Vital Signs - Most Recent: Last Vital Signs Temp 96.7 F L 11/18/20 04:00 Pulse 96 11/18/20 04:00 Resp 16 11/18/20 06:00 BP 116/59 L 11/18/20 04:00 Pulse Ox 95 11/18/20 06:00 Weight - Most Recent: 196 lb I&O - Last 24 Hours: Intake & Output 11/17/20 11/18/20 11/18/20 22:59 06:59 14:59 Output Total 140 115 Balance -140 -115 Lab Results - Last 24 Hours: Laboratory Results - last 24 hr 11/18/20 Range/Units 06:10 Hgb 10.8 L (12.0-16.0) g/dL Hct 31.7 L (36.0-46.0) % Med Orders - Current: Current Medications Bisacodyl (Bisacodyl 10 Mg Supp) 10 mg RECTAL ONETIME PRN PRN Reason: Constipation Diphenhydramine HCl (Diphenhydramine 50 Mg/Ml Sdv) 25 mg IVPUSH Q6H PRN PRN Reason: Itching or Nausea Docusate Sodium (Docusate Sodium 100 Mg Cap) 100 mg PO BID [facility] Last Admin: 11/17/20 21:07 Dose: 100 mg Documented by: Emollient Ointment (Lanolin 100% Cream 7 Gm Tube) 0 gm TOP ASDIRECTED PRN PRN Reason: Sore Nipples Oxytocin/Sodium Chloride (Oxytocin 30 Unit/500 Ml-Ns) 30 unit in 500 mls @ 250 mls/hr IV TITRATE [facility] Lactated Ringer's (Ringers, Lactated) 1,000 mls @ 500 mls/hr IV BOLUS [facility] Last Infusion: 11/17/20 06:46 Dose: 999 mls/hr Documented by: Lactated Ringer's (Ringers, Lactated) 1,000 mls @ 125 mls/hr IV ASDIRECTED [facility] Last Admin: 11/17/20 13:40 Dose: 125 mls/hr Documented by: Oxytocin/Lactated Ringer's (Pitocin In Lr 30 Units/500 Ml) 30 unit in 500 mls @ 2 mls/hr IV TITRATE AMISHA; Protocol Tranexamic Acid 1,000 mg/ (Sodium Chloride) 110 mls @ 660 mls/hr IV ONETIME PRN PRN Reason: Bleeding Ibuprofen (Ibuprofen 800 Mg Tab) 800 mg PO Q8H PRN PRN Reason: mild pain or fever Ketorolac Tromethamine (Ketorolac 30 Mg/Ml Sdv) 30 mg IVPUSH Q6H [facility] Stop: 11/18/20 10:01 Last Admin: 11/18/20 03:14 Dose: 30 mg Documented by: Methylergonovine Maleate (Methylergonovine 0.2 Mg/1 Ml Amp) 0.2 mg IM ONETIME PRN PRN Reason: Excessive Vaginal Bleeding Misoprostol (Misoprostol 200 Mcg Tab) 1,000 mcg RECTAL ONETIME PRN PRN Reason: excessive bleeding Ondansetron HCl (Ondansetron 4 Mg/2 Ml Sdv) 4 mg IVPUSH Q4H PRN PRN Reason: Nausea/Vomiting Oxycodone/Acetaminophen (Acetaminophen/Oxycodone 325-5 Mg Tab) 2 tab PO Q4H PRN PRN Reason: Pain (moderate 4-6) Oxycodone/Acetaminophen (Acetaminophen/Oxycodone 325-5 Mg Tab) 1 tab PO Q4H PRN PRN Reason: Pain (moderate 4-6) Oxytocin (Oxytocin 10 Units/1 Ml Sdv) 10 unit IM ASDIRECTED PRN PRN Reason: Excessive Vaginal Bleeding Sodium Chloride (Sodium Chloride 0.9% 10 Ml Syringe) 10 ml FLUSH ASDIRECTED PRN PRN Reason: Keep Vein Open Sodium Chloride (Sodium Chloride 0.9% 2.5 Ml Syringe) 2.5 ml FLUSH ASDIRECTED PRN PRN Reason: Keep Vein Open Sodium Chloride (Sodium Chloride 0.9% 10 Ml Sdv) 10 ml IV ASDIRECTED PRN PRN Reason: IV Use Discontinued Medications Citric Acid/Sodium Citrate (Citric Acid/Sodium Citrate Solution 30 Ml Cup) 30 ml PO ONETIME ONE Stop: 11/17/20 05:40 Dexamethasone (Dexamethasone 4 Mg/Ml 5 Ml Mdv) Confirm Administered Dose 20 mg .ROUTE .STK-MED ONE Stop: 11/17/20 09:09 Enoxaparin Sodium (Enoxaparin 40 Mg/0.4 Ml Syringe) 40 mg SUBCUT ONETIME ONE Stop: 11/18/20 12:01 Enoxaparin Sodium (Enoxaparin 40 Mg/0.4 Ml Syringe) 40 mg SUBCUT ONETIME ONE Stop: 11/17/20 14:31 Last Admin: 11/17/20 14:35 Dose: 40 mg Documented by: Clindamycin Phosphate 600 mg/ (Premix) 50 mls @ 100 mls/hr IV ASDIRECTED ONE Stop: 11/17/20 06:08 Gentamicin Sulfate 100 mg/ (Sodium Chloride) 52.5 mls @ 100 mls/hr IV ONETIME ONE Stop: 11/17/20 06:14 Gentamicin Sulfate 100 mg/ (Sodium Chloride) 102.5 mls @ 195.238 mls/hr IV ONETIME ONE Stop: 11/17/20 08:16 Ketorolac Tromethamine (Ketorolac 30 Mg/Ml Sdv) Confirm Administered Dose 30 mg .ROUTE .STK-MED ONE Stop: 11/17/20 06:52 Metoclopramide HCl (Metoclopramide 10 Mg/2 Ml Sdv) Confirm Administered Dose 10 mg .ROUTE .STK-MED ONE Stop: 11/17/20 09:09 Morphine Sulfate (Morphine Pf 10 Mg/10 Ml Sdv) Confirm Administered Dose 10 mg .ROUTE .STK-MED ONE Stop: 11/17/20 06:56 Ondansetron HCl (Ondansetron 4 Mg/2 Ml Sdv) Confirm Administered Dose 4 mg .ROUTE .STK-MED ONE Stop: 11/17/20 06:52 Oxycodone/Acetaminophen (Acetaminophen/Oxycodone 325-5 Mg Tab) 1 tab PO ONETIME ONE Stop: 11/17/20 13:22 Last Admin: 11/17/20 13:37 Dose: 1 tab Documented by: Oxytocin (Oxytocin 10 Units/1 Ml Sdv) Confirm Administered Dose 20 unit .ROUTE .STK-MED ONE Stop: 11/17/20 06:52 Oxytocin (Oxytocin 10 Units/1 Ml Sdv) Confirm Administered Dose 10 unit .ROUTE .STK-MED ONE Stop: 11/17/20 09:07 - Infant Interaction Disposition, : Not Applicable (Infants transferred to NICU in [place], [place]) Feeding: Other (see below) (Breastpumping) Support Person: - Recovery Exam Fundal Tone: Firm Fundal Level: At Umbilicus Fundal Placement: Midline Lochia Amount: Small Lochia Color: Rubra/Red Perineum Description: Intact, Minimal Bruising/Swelling Episiotomy/Laceration: None Bladder Status: Voiding Urinary Elimination: Voided - Exam General: Alert Lungs: Normal Respiratory Effort Cardiovascular: Regular Rate GI/Abdominal Exam: Soft, Tender (mild, appropriate) Extremities: Normal Inspection, Normal Range of Motion, Non-Tender, No Pedal Edema Skin: Warm, Dry, Intact Wound/Incisions: Dressing Dry and Intact Neurological: No New Focal Deficit Psy/Mental Status: Normal Mood - Problem List Review Problem List Initiated/Reviewed/Updated: Yes - Assessment Assessment:: 24 year old POD1 s/p PLTCS for twin gestation and malpresentation - Plan Plan:: Routine cares * PO pain medications PRN * Regular diet as tolerated * Encourage ambulation and fluid intake * Breastpumping Dispo: stable. Patient meeting postoperative milestones and strongly desires discharge today to travel to [place], [place], where both of her infants were transferred for higher level of care. Strict precautions reviewed including fever/chills, shortness of air, chest pain, intractable nausea/vomiting, abdominal pain not controlled by PO medications and heavy vaginal bleeding. Patient instructed to get out and walk every 30-60 minutes while travelling to [place], [place]. She is to notify on [employer] or present to the ED in [place], [place], if she has any concerning symptoms.
[2020-11-18] MEDS: Docusate Sodium 100 MG Cap PO SCH (09:04)
[2020-11-18] MEDS ORDERED: Enoxaparin 40 MG/0.4 ML Syringe SUBCUT ONE (12:00)
--- NOTE | 2020-11-20 10:21 | OR ---
SURGEON: CLAUDY CONTI DATE OF PROCEDURE: 11/17/2020 PREOPERATIVE DIAGNOSIS: 24-year-old G3, P2-0-0-2 at 37 weeks and 1 day, for primary section secondary to: 1. Twin gestation, breech malpresentation, breech and oblique. 2. Gestational hypertension. POSTOPERATIVE DIAGNOSIS: 24-year-old G3, P2-0-0-2 at 37 weeks and 1 day, for primary section secondary to: 1. Twin gestation, breech malpresentation, breech and oblique. 2. Gestational hypertension. PROCEDURE: Primary lower segment section. ESTIMATED BLOOD LOSS: 700. IV FLUIDS: 1400. URINE OUTPUT: 225. ANESTHESIA: Spinal. NOTES AND FINDINGS: A live male and female . Twin A was a female delivered at 8:41. score pending. Weight is 2390 g. Twin B delivered at 8:42. score is pending. Weight is 2340 g. BRIEF HISTORY ABOUT THE PATIENT: She is a 24-year-old, G3, P2-0-0-2 at 37 weeks and 1 day who was being managed for di-di twin . She developed gestational hypertension about two weeks ago. She was being monitored weekly and biweekly with blood pressure checks and BPP, NSTs, and also PIH labs. Labs were normal. Blood pressures were stable around 130s to 140s over 80s to 90s. As a result of this, she was counseled for delivery at 37 weeks which she agreed to. Mode of delivery was going to be because of malpresentation of twin which were breech and cephalic. The patient was explained the risks, benefits, and alternatives and she decided to proceed with the . DESCRIPTION OF PROCEDURE: The patient was taken to the operating room where spinal anesthesia was performed without difficulty. She was prepared and draped in the dorsal supine position with a leftward tilt. A Pfannenstiel skin incision was made with a scalpel and carried down to the fascia with the Bovie. The fascia was incised and extended upwards and laterally. There was an abdominal diastasis noted. The abdomen was entered in with blunt and sharp entry. The entry of the peritoneum revealed the bladder. A bladder flap was created and a lower uterine incision was made with a scalpel and extended manually superiorly and inferiorly. The twin A was noted to be in a breech position and was delivered via breech delivery with the buttocks brought to the level of the incision. With pressure, the body was delivered and the anterior and posterior shoulder were delivered, and the head was delivered without any difficulty. Then, the position of the second twin was noted to be oblique. He was brought to cephalic position. The membrane was ruptured and with fundal pressure, the head was delivered, body was also delivered. Delayed cord clamping was observed for both twins. The twins were bulb-suctioned and cleaned and handed over to the awaiting nursery team. The placenta was then delivered by manual massage of the uterine fundus after cord blood gases were obtained. Because of the bleeding due to overdistention, Hemabate was also given. The uterine cavity was cleaned with a moist laparotomy sponge and all membranes were removed. The incision was closed in two layers, first layer was closed with a 0 Vicryl and second layer was closed with a 2-0 Monocryl. The incision was inspected and noted to be hemostatic. The Casa retractor was removed and the incision was then reinspected and noted to be hemostatic. The peritoneum was closed with 2-0 Vicryl in a continuous fashion. The skin was apposed in the midline with also 2- 0 Vicryl. The fascia was closed with 0 Vicryl in a continuous fashion. The skin was closed with a 4-0 Monocryl on a Jaswinder needle. All instrument and pad counts were correct x2. The patient tolerated the procedure well and will recover in the Labor and Delivery room. DESMOND VALDEZ /[id number] LARRY
== END 2020-11-18 11:59 | disposition home or self-care (01) | DRG 540 ==
LOC: MW.OBCHECK 05:22 → MW.OB 05:24 → MW.OBCHECK 05:38 → MW.OB 05:39
PROVIDERS: ADMIT Obstetrics & Gynecology; ATTEND Obstetrics & Gynecology
PROC: 10D00Z1 Extraction of Products of Conception, Low, Open Approach (ICD-10-PCS; principal; 2020-11-17)
DX: O32.1XX1 Maternal care for breech presentation, fetus 1 (principal); O30.043 Twin pregnancy, dichorionic/diamniotic, third trimester; Z37.2 Twins, both liveborn; O99.62 Diseases of the digestive system complicating childbirth; K21.9 Gastro-esophageal reflux disease without esophagitis; O99.214 Obesity complicating childbirth; E66.9 Obesity, unspecified; Z3A.37 37 weeks gestation of pregnancy; Z88.0 Allergy status to penicillin; O13.3 Gestational [pregnancy-induced] hypertension without significant proteinuria, third trimester
CPT/HCPCS: 01961; 36415; 59025; 85014; 85018; 85027; 86592; 86850; 86900; 86901; 88307; A9270-GY; J1100; J1650; J1885; J2270; J2405; J2590; J2765; J7120

== ENCOUNTER 2022-08-01 18:44 | Emergency (ER) | payer SELFPAY ==
[2022-08-01] MEDS ORDERED: Acetaminophen 500 MG Tab PO ONE (20:56)
[2022-08-01 21:05] LABS: CARBON DIOXIDE,CO2 23.5 mmol/L (21.0-32.0); POTASSIUM,K 3.2 mmol/L (3.5-5.1)
== END 2022-08-01 22:40 | disposition home or self-care (01) ==
LOC: MW.ED 18:44
DX: O99.891 Other specified diseases and conditions complicating pregnancy (principal); R07.89 Other chest pain; O99.211 Obesity complicating pregnancy, first trimester; E66.9 Obesity, unspecified; Z88.0 Allergy status to penicillin; Z3A.01 Less than 8 weeks gestation of pregnancy
CPT/HCPCS: 36415; 71045; 80053; 83735; 84484; 84702; 85025; 85379; 93005; 99285; A9270

== ENCOUNTER 2022-08-28 10:32 | Emergency (ER) | payer BC ==
[2022-08-28] MEDS ORDERED: Sodium Chloride 0.9% 1,000 ML IV ONE ×2 (11:03→11:45)
[2022-08-28] MEDS ORDERED: Ondansetron 4 MG/2 ML SDV IVPUSH ONE (11:04)
[2022-08-28] MEDS ORDERED: Ketorolac 30 MG/ML SDV IVPUSH ONE (11:04)
[2022-08-28] MEDS ORDERED: traMADol 50 MG Tab PO ONE (11:10)
[2022-08-28 12:10] LABS: CARBON DIOXIDE,CO2 24.1 mmol/L (21.0-32.0); POTASSIUM,K 4.3 mmol/L (3.5-5.1)
== END 2022-08-28 14:03 | disposition home or self-care (01) ==
LOC: MW.ED 10:32
DX: R51.9 Headache, unspecified (principal); H53.8 Other visual disturbances; E66.9 Obesity, unspecified; Z68.29 Body mass index [BMI] 29.0-29.9, adult; Z88.0 Allergy status to penicillin
CPT/HCPCS: 36415; 70450; 80053; 84703; 85025; 96360; 99284; A9270; J7030